=== PATIENT | female | born 1970 | race Caucasian/White ===

== ENCOUNTER 2024-10-30 09:30 | Emergency (ER) | payer BC ==
[~2024-10-30] VITALS: Ht 162.6 cm; Wt 54.1 kg
[2024-10-30] MEDS ORDERED: HOME MED LIST COMPLETE! XX SCH (13:00)
[2024-10-30] MEDS ORDERED: ISOVUE-370 76% 100 ML VIAL As Ordered ONE (15:21)
[2024-10-30] MEDS ORDERED: KEPP1TAB PO (17:05)
[2024-10-30 17:15] VITALS: BP 159/74; TEMP 97.8; O2SAT 99
== END 2024-10-30 17:41 | disposition home or self-care (01) ==
LOC: M ED 09:30
DX: S09.90XA Unspecified injury of head, initial encounter (principal); W19.XXXA Unspecified fall, initial encounter; Y92.009 Unspecified place in unspecified non-institutional (private) residence as the place of occurrence of the external cause; Y93.9 Activity, unspecified; Y99.9 Unspecified external cause status; M47.812 Spondylosis without myelopathy or radiculopathy, cervical region
CPT/HCPCS: 70450; 70486; 70496; 72125; 80047; 99285; Q9967